=== PATIENT | male | born 1970 | race Asian ===

== ENCOUNTER 2018-12-26 12:45 | Day surgery (SDC) | payer OTHER ==
[~2018-12-26] VITALS: Ht 167.6 cm; Wt 69.7 kg
[~2018-12-26 12:45] MED LIST: ALLOPURINOL; ASPI-903 PO; ATENOLOL; ATORVASTATIN; MAGNESIUM
[2018-12-26 13:46] VITALS: Ht 167.6 cm; Wt 69.7 kg
[2018-12-26 15:28] VITALS: BP 134/87; PULSE 77; RESP 13
--- NOTE | 2018-12-26 15:32 | PREAC ---
Date/Time of Note Date/Time of Note DATE: 12/26/18 TIME: 15:31 Anesthesia Eval and Record Evaluation Time Pre-Procedure Interview DATE: 12/26/18 TIME: 15:31 Age 48 Sex male NPO: 8 hrs Preoperative diagnosis SCREENING FOR COLON CANCER Planned procedure COLONOSCOPY Past Medical History Past Medical History: Includes Cardio: HTN, Dyslipidemia Musculoskeletal: Other (GOUT) Surgery & Anesthesia Issues No known issue Meds Anticoagulation: No Beta Alen within 24 hr: No Reason Beta Alen not given: Pt. not on B-Alen Reported Medications Aspirin* (Aspirin* Chew) 81 Mg Tab.chew, 81 MG PO DAILY, TAB.CHEW 12/26/18 [Allopurinol] No Conflict Check 12/26/18 [Atenolol] No Conflict Check 12/26/18 [Atorvastatin] No Conflict Check 12/26/18 [Magnesium] No Conflict Check 12/26/18 Meds reviewed: Yes Allergies Coded Allergies: sulfamethoxazole (Verified Allergy, Unknown, 12/26/18) trimethoprim (Verified Allergy, Unknown, 12/26/18) Allergies Reviewed: Yes Labs/Studies Labs Reviewed: Reviewed by anesthesiologist test: N/A Pre-procedure Exam Airway: Adequate mouth opening, Adequate thyromental dist Mallampati: Mallampati II Teeth: Normal Lung: Normal Heart: Normal ASA Physical Status ASA physical status: 2 Emergency: None Planned Anesthetic General/MAC: MAC Planned Pain Management Parenteral pain med Pre-operative Attestations Prior to commencing anesthesia and surgery, the patient was re-evaluated, there was verification of: *The patient's identity *The results of appropriate recent lab work and preoperative vital signs *The above evaluation not changing prior to induction *Anesthetic plan, risk benefits, alternative and complications discussed with patient/family; questions answered; patient/family understands, accepts and wishes to proceed. Romeo Archer M.D. Dec 26, 2018 15:32
[2018-12-26] MEDS ORDERED: LIDOCAINE 2% (SDV) 5 ML INJ ONE (15:42)
[2018-12-26] MEDS ORDERED: PROPOFOL 200 MG INJ ONE (15:42)
[2018-12-26] MEDS ORDERED: PROPOFOL 20 ML ONE (15:42)
--- NOTE | 2018-12-26 16:04 | PAC ---
Date/Time of Note Date/Time of Note DATE: 12/26/18 TIME: 16:04 Post-Anesthesia Notes Post-Anesthesia Note Last documented vital signs HR 77 RR 14 BP 114/75 T 98 Activity: WNL Respiratory function: WNL Cardiovascular function: WNL Mental status: Baseline Pain reasonably controlled: Yes Hydration appropriate: Yes Nausea/Vomiting absent: Yes Romeo Archer M.D. Dec 26, 2018 16:04
[2018-12-26 16:39] VITALS: BP 129/91; RESP 20
== END 2018-12-26 16:41 | disposition home or self-care (01) ==
LOC: GIL 12:45
PROVIDERS: ATTEND Internal Medicine Gastroenterology
DX: Z12.11 Encounter for screening for malignant neoplasm of colon (principal); D12.7 Benign neoplasm of rectosigmoid junction; K64.8 Other hemorrhoids; K57.30 Diverticulosis of large intestine without perforation or abscess without bleeding; I10 Essential (primary) hypertension; E78.5 Hyperlipidemia, unspecified
CPT/HCPCS: 88305